=== PATIENT | male | born 1970 ===

== ENCOUNTER → 2018-03-12 | Outpatient (REF) | payer OTHER, SELFPAY ==
[2018-03-13 10:58] LABS: SEMEN APPEARANCE OPAQUE (OPAQUE); SEMEN VISCOSITY VISCOUS (LIQUID); SEMEN VOLUME 1.8 ml (4.0-5.0); SEMEN pH 8.5 (7.0-8.0); SPERM ABNORMAL FORMS WBC'S NOTED; WBC CONCENTRATION >1 M/ml (<=1 M/ml)
[2018-03-13 10:59] LABS: % NORMAL FORMS 6 % (>=4); IMMOTILITY 50 %; NON PROGRESSIVE MOTILITY (c) 22 %; PROGRESSIVE MOTILITY (a) 28 % (>=32); SPERM# 21.6 M/Ejac (>=39); TOTAL MOTILITY 50 % (>=40); TOTAL PROGRESSIVE SPERM 6.1 M/Ejac.
[2018-03-13 11:01] LABS: TOTAL FUNCTIONAL 0.9 M/Ejac.
== END ==
LOC: M LAB REF 07:35
DX: N46.9 Male infertility, unspecified (principal)